=== PATIENT | female | born 1970 | race Two or more races ===

== ENCOUNTER 2025-08-13 01:29 | Inpatient (IN) | payer MEDICAID ==
[2025-08-13] VITALS (8 sets, daily range): BP systolic 91–126; BP diastolic 49–73; PULSE 50–65; RESP 14–19; TEMP 97.5–98.8; O2SAT 97–100
[~2025-08-13] VITALS: Ht 152.4 cm; Wt 80.2 kg
[2025-08-13 02:46] LABS: Hematocrit 39.4 % (36.0-46.0); Hemoglobin 13.3 g/dL (12.2-16.2); Mean Corpuscular Hemoglobin 32.0 pg (28.0-32.0); Mean Corpuscular Volume 94.5 fL (80.0-100.0); Nucleated Red Blood Cells % 0.0 %
[2025-08-13] MEDS: ONDANSETRON HCL 4 MG/2 ML VIAL IV ONE (02:47)
[2025-08-13 02:52] LABS: INR 1.05 (0.9-1.15); Partial Thromboplastin Time 26.8 SEC (24.5-34.5); Prothrombin Time 11.1 sec (9.3-11.8)
[2025-08-13 02:57] LABS: Albumin 4.4 g/dL (3.2-4.8); Alkaline Phosphatase 50 U/L (46-116); Anion Gap 10 (5-15); BUN/Creatinine Ratio 13.3 (10.0-20.0); Blood Urea Nitrogen 10 mg/dL (9-23); Calcium 9.5 mg/dL (8.7-10.4); Carbon Dioxide 21 mmol/L (20-31); Glucose 91 mg/dL (74-106); Magnesium 2.2 mg/dL (1.6-2.6); Potassium 3.7 mmol/L (3.5-5.1); Sodium 139 mmol/L (136-145); Total Protein 7.4 g/dL (5.7-8.2)
[2025-08-13 02:58] LABS: Bilirubin, Total 0.6 mg/dL (0.2-1.0)
[2025-08-13 02:59] LABS: Alanine Aminotransferase 46 U/L (7-40); Chloride 108 mmol/L (98-107)
--- NOTE | 2025-08-13 03:01 | DVH ---
CHEST RADIOGRAPH Indication: SUSPECTED CVA Technique: 1 view Comparison: None FINDINGS: Lines and Tubes: External leads. Lungs/Pleura: No focal consolidation, pleural effusion or pneumothorax. Cardiomediastinum: Unremarkable. Other: No acute osseous abnormality. IMPRESSION: 1. No acute cardiopulmonary abnormality.
--- NOTE | 2025-08-13 03:28 | DVH ---
INDICATION: SUSPECTED CVA COMPARISON: None TECHNIQUE: CTA head without and with intravenous contrast. CTA neck with intravenous contrast. 3D image postprocessing was performed on a dedicated workstation and images were used for interpretation and reporting. Radiation Dose Information: CT Dose: CTDI volume is 57.52 mGy. Dose-length product is 1537.33 mGy*cm FINDINGS: CT head: There is no evidence of acute intracranial hemorrhage, extra-axial collection, mass effect, midline s hift, herniation or hydrocephalus. The ventricles, sulci and cisterns are age appropriate. The duncan -white differentiation is intact. The visualized paranasal sinuses and mastoid air cells are clear. The surrounding soft tissues and osseous structures are unremarkable. CTA head: No large vessel occlusion or hemodynamically significant stenosis. No evidence of aneurysm or vascula r malformation. The dural veins appear patent. CTA neck: The visualized thoracic aortic arch and proximal great vessels are unremarkable. The left common, internal and external carotid arteries are patent with non flow limiting atheroscler osis of the bulb. The right common, internal and external carotid arteries are patent with non flow-limiting atheroscle rosis of the bulb. The cervical segments of the right and left vertebral arteries are within normal limits. The limited visualized lung apices are clear. The surrounding soft tissues and osseous structures ar e otherwise unremarkable. IMPRESSION: 1. No acute intracranial abnormality. 2. No large vessel intracranial occlusion. 3. No hemodynamically significant cervical arterial stenosis. All CT scans at this medical facility are performed using dose modulation techniques as appropriate t o a performed exam including the following: Automated exposure control was utilized; adjustment of th e MA and/or KV according to patient size; and use of iterative reconstruction technique.
[2025-08-13] MEDS: ONDANSETRON HCL 4 MG/2 ML VIAL ONE (03:39)
[2025-08-13] MEDS: IOHEXOL 350 MG/ML 100ML IJ ONE (03:39)
[2025-08-13] MEDS ORDERED: HYDROmorphone HCL 2 MG/ML VL/or syr IV PRN (04:30)
[2025-08-13] MEDS ORDERED: ONDANSETRON HCL 4 MG/2 ML VIAL IV PRN (04:30)
[2025-08-13 05:28] LABS: Hematocrit 39.3 % (36.0-46.0); Hemoglobin 13.4 g/dL (12.2-16.2); Mean Corpuscular Hemoglobin 32.3 pg (28.0-32.0); Mean Corpuscular Volume 94.8 fL (80.0-100.0); Nucleated Red Blood Cells % 0.1 %
[2025-08-13] MEDS: ATORVASTATIN 20 MG TAB PO ONE (05:35)
[2025-08-13] MEDS: PANTOPRAZOLE 40 MG/10 ML VIAL INJ IV ONE (05:35)
[2025-08-13] MEDS: CLOPIDOGREL BISULFATE 75 MG TAB PO ONE (05:35)
[2025-08-13 05:40] LABS: Albumin 4.4 g/dL (3.2-4.8); Alkaline Phosphatase 55 U/L (46-116); Anion Gap 9 (5-15); BUN/Creatinine Ratio 17.6 (10.0-20.0); Blood Urea Nitrogen 12 mg/dL (9-23); Calcium 9.3 mg/dL (8.7-10.4); Carbon Dioxide 26 mmol/L (20-31); Chloride 107 mmol/L (98-107); Glucose 81 mg/dL (74-106); Magnesium 2.1 mg/dL (1.6-2.6); Potassium 3.8 mmol/L (3.5-5.1); Sodium 142 mmol/L (136-145); Total Protein 7.3 g/dL (5.7-8.2)
[2025-08-13 05:41] LABS: Bilirubin, Total 0.7 mg/dL (0.2-1.0)
[2025-08-13 05:54] LABS: Alanine Aminotransferase 74 U/L (7-40)
[2025-08-13 06:04] LABS: Triglycerides 85 mg/dL (< 150)
[2025-08-13 06:06] LABS: Cholesterol 185 mg/dL (< 200)
[2025-08-13 06:13] LABS: INR 1.08 (0.9-1.15); Partial Thromboplastin Time 27.0 SEC (24.5-34.5); Prothrombin Time 11.4 sec (9.3-11.8)
[2025-08-13 06:26] LABS: HDL Cholesterol 65 mg/dL (40-59)
[2025-08-13 06:37] LABS: Urine Protein, UAD TRACE (Negative)
[2025-08-13 06:43] LABS: Opiate Scree,Urine Pos (NEGATIVE)
[2025-08-13 06:46] LABS: Amphetamine Screen, Urine Neg (NEGATIVE); Barbiturate Scree,Urine Neg (NEGATIVE); Benzodiazephine Screen, Urine Neg (NEGATIVE); Phencyclidine Screen, Urine Neg (NEGATIVE)
[2025-08-13 06:47] LABS: Cannabinoid Screen, Urine Neg (NEGATIVE); Cocaine Screen, Urine Neg (NEGATIVE)
--- NOTE | 2025-08-13 07:33 | DVH ---
INDICATION: transaminitis TECHNIQUE: Multiple real-time sonographic images of the abdomen were obtained. COMPARISON: None FINDINGS: The liver is heterogeneous in echogenicity. The liver measures 15cm. No intrahepatic bilia ry ductal dilatation is noted. Gallbladder wall not visualized. The common duct measures 1 cm and is unremarkable. No pericholecyst ic fluid is noted. The right kidney measures 10cm. Mild right hydronephrosis. Gallbladder is possibly contracted, unable to be visualized. The pancreas is not well visualized due to obscuration from bowel gas. The visualized portions of the IVC and aorta are grossly unremarkable. IMPRESSION: Mild right hydronephrosis. Gallbladder is possibly contracted, unable to be visualized. Dilated common bile duct.
--- NOTE | 2025-08-13 08:26 | ECG ---
[facility] Test Date: 2025-08-13 Test Time: 01:38:28 Pat Name: TIARA SILVA Department: [facility] ED Room: 0290T Gender: F Tie Layer: [place] : 1970 Requested By: EMERGENCY EMERGENCY Order Number: [id number] Reading MD: Alexandre Farrar Measurements Intervals [place] Rate: 60 P: 65 MN: 168 QRS: -3 QRSD: 95 T: 62 QT: 439 QTc: 439 Interpretive Statements Sinus rhythm Electronically Signed On 08-17-2025 13:28:41 PST by Alexandre Farrar Please click the below link to view image of tracing.
--- NOTE | 2025-08-13 08:36 | DVH ---
Carotid Duplex Date: 08/13/2025 07:25 AM Clinical History: dizziness Comparison: CT ANGIO HEAD/NECK on DOS: 08/13/25 Technique: Duplex Doppler evaluation of the extracranial carotid and vertebral arteries including col or Doppler and spectral/pulsed waveform analysis was performed. Findings: RIGHT SIDE: Moderate atherosclerotic plaque seen in the right carotid bulb. The peak systolic velocities are 81.5 cm/s in the distal CCA and 114.8 cm/s in the proximal ICA.The I CA/CCA ratio is 1.4. The external carotid artery is patent with peak systolic velocity of 67.2 cm/s proximally. There is appropriate antegrade flow in the right vertebral artery. LEFT SIDE: Mild atherosclerotic plaque seen in the carotid bulb. The peak systolic velocities are 73.4 cm/s in the distal CCA and 158.1 cm/s in the proximal ICA. The ICA/CCA ratio is 2.2. The external carotid artery is patent with peak systolic velocity of 83.5 cm/s proximally. There is appropriate antegrade flow in the left vertebral artery. IMPRESSION: 1. Less than 50% stenosis in the right internal carotid artery. 2. Approximately 50-69% stenosis of the left internal carotid artery based on peak systolic velocity criteria. REFERENCE VALUES, [facility] ([facility]) vascular Imaging Lab Criteria:. 2. Peak systolic velocity ranges (in cm/sec) are as follows:. 3. <150 cm/s - <50% stenosis. 4. 150-200 cm/s - 50-69% stenosis. 5. 200-300 cm/s - 70-94% stenosis. 6. >300 cm/s -> 95% stenosis.
--- NOTE | 2025-08-13 08:49 | DVH ---
EXAMINATION: MRI BRAIN HEAD WO CONTRAST INDICATION: stroke COMPARISON: CT ANGIO HEAD/NECK on DOS: 08/13/25 TECHNIQUE: Multiplanar, multisequence magnetic resonance imaging of the brain was performed without the use of i ntravenous contrast. FINDINGS: No evidence of acute infarct. No intracranial hemorrhage. No mass effect. There is periventricular/deep white matter T2/FLAIR hyperintensity is nonspecific, but most commonly associated with chronic microvascular disease. The ventricles and sulci are normal in size for age. Clear basal cisterns. Flow voids in the major intracranial vessels are maintained. No abnormality of the orbits. The mastoid air cells are clear. There is mild mucosal thickening in the left maxillary sinus. No abnormality of the visualized osseous structures and extracranial soft tissues. IMPRESSION: 1. No acute infarct, intracranial hemorrhage, mass effect, or hydrocephalus.
--- NOTE | 2025-08-13 11:35 | ED.PDOC ---
History of Present Illness HPI Comments 55-year-old female who came to ER via EMS for chest pains. Patient does have a history of hypertension and dyslipidemia. States 30 minutes prior to arrival, she developed sudden onset left-sided chest pains, pressure, radiating to the back. Noted also to have left facial numbness, nape pain, dizziness, generalized weakness and left lower extremity numbness REVIEW OF SYSTEMS: General: No fever, no chills, or fatigue HEENT: No sore throat, no earache, no congestion, no neck pain. Cardiac: (+) chest pain. No palpitations. Lungs: No shortness of breath, no cough. GI: No nausea, no vomiting, no diarrhea, no constipation, no abdominal pain : No dysuria, frequency, or urgency. No hematuria. Musculoskeletal: No joint pain , no joint swelling, no extremity edema. Skin: No rash, no itching. Neuro: (+) headache, (+) dizziness, (+) weakness, (+) left facial numbness EXAM: General: Awake, alert and oriented. No acute distress. Skin: Skin in warm, dry and intact. Appropriate color for ethnicity. HEENT: The head is normocephalic and atraumatic. Conjunctivae are clear without exudates or hemorrhage. Sclera is non-icteric. EOM are intact. No signs of nystagmus. Eyelids are normal in appearance without swelling or lesions. Oral mucosa is pink and moist Neck: The neck is supple with normal range of motion. No JVD. Cardiac: Heart rate and rhythm are normal. No murmurs, gallops, or rubs are auscultated. Respiratory: No signs of respiratory distress. Lung sounds are clear in all lobes bilaterally without rales, rhonchi, or wheezes. Abdominal: Abdomen is soft, non-tender without distention. Bowel sounds are present and normoactive in all four quadrants. Extremities: Upper and lower extremities are atraumatic in appearance without deformity or edema. Neurological: The patient is awake, alert and oriented to person, place, and time with normal speech. Speech is clear. There is no facial asymmetry. Psychiatric: Appropriate mood and affect. Good judgement and insight Chief Complaint: Chest Pain Time Seen by MD: 02:38 Reviewed Notes: Nurses Notes Allergies: Coded Allergies: NO KNOWN ALLERGIES (Unverified , 08/13/25) Home Meds Active Scripts Clopidogrel Bisulfate (Plavix) 75 Mg Tab, 1 TAB PO DAILY for 21 Days, #21 TAB Prov:ALLEGRA MCARTHUR 08/15/25 Aspirin (Aspirin Low Dose) 81 Mg Chw, 1 TAB PO DAILY for 21 Days, #21 [facility] Pantoprazole Sodium Sesquihydr (Protonix) 40 Mg Tab, 40 MG PO DAILY for 14 Days, #14 TAB [facility] 08/[facility]/25 Polyethylene Glycol 3350 (Miralax) 17 Gm Pow, 17 GM PO DAILY for 15 Days, #15 POW [facility] 08/15/25 Clopidogrel Bisulfate (Plavix) 75 Mg Tab, 1 TAB PO DAILY for 21 Days, #21 TAB [facility] 08/15/25 Aspirin (Aspirin Low Dose) 81 Mg Chw, 1 TAB PO DAILY for 21 Days, #21 TAB [facility] 08/15/25 Atorvastatin Calcium (ATORVASTATIN CALCIUM) 80 Mg Tab, 1 TAB PO HS for 30 Days, #30 TAB 3 [facility] 08/15/25 Reported Medications Cyanocobalamin (VITAMIN B 12) 100 Mcg Bertha, 100 MCG PO, BERTHA 08/13/25 Information Source: Patient Mode of Arrival: EMS Past Medical History PAST MEDICAL HISTORY: High Lipids, HTN Surgical History: Denies all surgeries 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 Was a procedure done?: No Differential Dx Considerations may include: Anemia, electrolyte imbalance, CVA, TIA, chest pain, coronary artery disease X-Ray, Labs, Meds, VS Vital Signs Date Time Temp Pulse Resp B/P (MAP) Pulse Ox O2 Delivery O2 Flow Rate FiO2 08/13/25 04:00 50 08/13/25 03:26 52 08/13/25 03:00 59 16 155/66 (95) 98 08/13/25 02:22 58 16 161/68 (99) 100 08/13/25 02:15 Room Air* 0 21 08/13/25 02:10 98.1 54 31 128/68 (88) 99 98.1 08/13/25 01:38 60 08/13/25 01:29 98.4 68 20 147/89 99 98.4 Lab Test 08/13/25 02:47 08/13/25 02:29 08/13/25 01:45 Range/Units Troponin I High Sensitivity 4 4 </=34 ng/L Thyroid Stimulating Hormone (TSH) 2.20 0.55-4.78 uIU/mL POC Glucose 107 H 70-106 mg/dl White Blood Count 5.6 4.4-10.8 10^3/uL Red Blood Count 4.17 4.0-5.20 10^6/uL Hemoglobin 13.3 12.2-16.2 g/dL Hematocrit 39.4 36.0-46.0 % Mean Corpuscular Volume 94.5 80.0-100.0 fL Mean Corpuscular Hemoglobin 32.0 28.0-32.0 pg Mean Corpuscular Hemoglobin Concent 33.9 32.0-36.0 g/dL Red Cell Distribution Width 14.3 11.8-14.3 % Platelet Count 213 140-450 10^3/uL Mean Platelet Volume 7.6 6.9-10.8 fL Neutrophils (%) (Auto) 47.1 37.0-80.0 % Lymphocytes (%) (Auto) 43.9 10.0-50.0 % Monocytes (%) (Auto) 7.2 0.0-12.0 % Eosinophils (%) (Auto) 1.4 0.0-7.0 % Basophils (%) (Auto) 0.4 0.0-2.0 % Neutrophils # (Auto) 2.7 1.6-8.6 10 ^3/uL Lymphocytes # (Auto) 2.5 0.4-5.4 10 ^3/uL Monocytes # (Auto) 0.4 0-1.3 10 ^3/uL Eosinophils # (Auto) 0.1 0-0.8 10 ^3/uL Basophils # (Auto) 0 0-0.2 10 ^3/uL Nucleated Red Blood Cells 0.0 % Prothrombin Time 11.1 9.3-11.8 sec Prothrombin Time INR 1.05 0.9-1.15 Activated Partial Thromboplast Time 26.8 24.5-34.5 SEC Sodium Level 139 136-145 mmol/L Potassium Level 3.7 3.5-5.1 mmol/L Chloride Level 108 H 98-107 mmol/L Carbon Dioxide Level 21 20-31 mmol/L Anion Gap 10 5-15 Blood Urea Nitrogen 10 9-23 mg/dL Creatinine 0.75 0.550-1.02 mg/dL Glomerular Filtration Rate Calc 93 >90 mL/min BUN/Creatinine Ratio 13.3 10.0-20.0 Serum Glucose 91 74-106 mg/dL Calcium Level 9.5 8.7-10.4 mg/dL Magnesium Level 2.2 1.6-2.6 mg/dL Total Bilirubin 0.6 0.2-1.0 mg/dL Aspartate Amino Transferase (AST) 91 H 13-40 U/L Alanine Aminotransferase (ALT) 46 H 7-40 U/L Alkaline Phosphatase 50 46-116 U/L B-Type Natriuretic Peptide 11.99 0-100 pg/mL Total Protein 7.4 5.7-8.2 g/dL Albumin 4.4 3.2-4.8 g/dL Time of 1ST Reevaluation: 02:30 Reevaluation 1ST: Unchanged Patient Education/Counseling: Need For Follow Up Family Education/Counseling: No Family Present SEPSIS Sepsis Screen Date sepsis recognized/suspect: Aug 13, 2025 Time Sepsis recognized/suspect: 0129 Recent Procedure: No On Antibiotic Therapy: No Respiratory Rate >20: No Heart Rate >90: No Temp<36 C (96.8 F) or >38.3 C: No SBP <90 or MAP <65 mmHG: No New Acute Mental Status Change: No Is the patient on CPAP, BIPAP,: No Physician Orders Electrocardigram (08/13/25 01:46) [place] [facility] Consult (08/13/25 02:18) Accurate Weight In Kg (08/13/25 02:19) Accucheck (08/13/25 02:19) Angio Head/Neck (08/13/25 02:19) Chest Xray 1 View (08/13/25 02:19) * Neurology Consult (08/13/25 02:19) Nursing Dysphagia Screen (08/13/25 02:19) Neuro Checks Per Unit Protocol (08/13/25 02:19) Vital Signs Date Time Temp Pulse Resp B/P (MAP) Pulse Ox O2 Delivery O2 Flow Rate FiO2 08/13/25 04:00 50 08/13/25 03:26 52 08/13/25 03:00 59 16 155/66 (95) 98 08/13/25 02:22 58 16 161/68 (99) 100 08/13/25 02:15 Room Air* 0 21 08/13/25 02:10 98.1 54 31 128/68 (88) 99 98.1 08/13/25 01:38 60 08/13/25 01:29 98.4 68 20 147/89 99 98.4 Laboratory Tests Test 08/13/25 01:45 White Blood Count 5.6 10^3/uL (4.4-10.8) Departure 1 Departure Time of Disposition: 03:27 Impression: Primary Impression: Suspected cerebrovascular accident (CVA) Disposition: ADMITTED INPATIENT Condition: Stable e-Prescriptions Clopidogrel Bisulfate (Plavix) 75 Mg Tab 1 TAB PO DAILY for 21 Days, #21 TAB Prov: ALLEGRA MCARTHUR [facility] 08/15/25 Aspirin (Aspirin Low Dose) 81 Mg Chw 1 TAB PO DAILY for 21 Days, #21 TAB [facility]25 Pantoprazole Sodium Sesquihydr (Protonix) 40 Mg Tab 40 MG PO DAILY for 14 Days, #14 TAB [facility] Polyethylene Glycol 3350 (Miralax) 17 Gm Pow 17 GM PO DAILY for 15 Days, #15 POW Prov: ALLEGRA MCARTHUR [facility] 08/15/25 Clopidogrel Bisulfate (Plavix) 75 Mg Tab 1 TAB PO DAILY for 21 Days, #21 TAB Prov: ALLEGRA MCARTHUR [facility] 08/15/25 Aspirin (Aspirin Low Dose) 81 Mg Chw 1 TAB PO DAILY for 21 Days, #21 TAB Prov: ALLEGRA MCARTHUR [facility] 08/15/25 Atorvastatin Calcium (ATORVASTATIN CALCIUM) 80 Mg Tab 1 TAB PO HS for 30 Days, #30 TAB 3 Refills Prov: ALLEGRA MCARTHUR [facility] 08/15/25 Comments Suspected CVA Not a candidate for TNK Critical Care Note Critical Care Time?: No Stability Stability form required: No Heart Score Heart Score: Heart Score Response (Comments) Value History N/A 0 EKG N/A 0 Age N/A 0 Risk Factors N/A 0 Troponin N/A 0 Total 0 I personally scribed for PETER BAIN MD ([email or web address]) on 08/13/25 at 02:38. Electronically submitted by Newton Man ([email or web address]). PETER BAIN MD Aug 13, 2025 02:38
--- NOTE | 2025-08-13 11:37 | BSKYNEURO ---
[place] [facility] Note # Demographics Consult Type: Acute Stroke Level 1 (0-4.5 hrs) Patient Location: Emergency Room First Name: Anisa Last Name: French Date of : 1970 Age: 55 Gender: Female Facility: [facility] Time of Initial Page (): 08/13/2025 02:22 First Contact with Site (): 08/13/2025 02:23 # HPI History: 55y F who presented with headache L facial numbness and generalized weakness. On ER eval her symptoms are almost resolved. Patient notes she was sitting in bed when she suddenly had chest pain with numbness going to the L side of her face. Last Known Normal: 0000 # Scores Time of exam and NIHSS (): 08/13/2025 02:54 Level of Consciousness 1a: [0] = Alert; keenly responsive LOC Questions 1b: [0] = Answers both questions correctly LOC Commands 1c: [0] = Performs both tasks correctly Best Gaze 2: [0] = Normal Visual 3: [0] = No visual loss Facial Palsy 4: [0] = Normal symmetrical movements Motor Arm Left 5a: [0] = No drift Motor Arm Right 5b: [0] = No drift Motor Leg Left 6a: [0] = No drift Motor Leg Right 6b: [0] = No drift Limb Ataxia 7: [0] = Absent Sensory 8: [1] = Pelg-of-pdcrirwr sensory loss Best Language 9: [0] = No aphasia Dysarthria 10: [0] = Normal Extinction and Inattention 11: [0] = No abnormality NIHSS Total: 1 # Data Time Head CT personally read by me (): 08/13/2025 02:[address]: - no bleed - preliminarily reviewed by me, please refer to radiology read for official reading Time CTA personally reviewed by me (): 08/13/2025 02:50 CTA Head: - no large vessel occlusion - preliminarily reviewed by me, please refer to radiology read for official reading CTA Neck: - patent vessels - preliminarily reviewed by me, please refer to radiology read for official reading # Assessment Impression: - Ischemic Stroke (Acute) Differential Diagnosis: - Stroke Mimic # Plan Thrombolytic/Intervention: NOT IV Thrombolysis or IA Intervention candidate Thrombolytic Exclusion (< 3 hour window): - Individualized disability discussion had with the patient and/or family, and they have determined the current deficits to be non-disabling and do not wish to proceed with thrombolytic Intraarterial Exclusion: - no large vessel occlusion (LVO) Modified Mchenry Scale (mRS) pre-stroke: [1] = No significant disability despite symptoms; able to carry out all usual duties and activities. Blood Pressure Management: - nicardipine - labetalol Target Blood Pressure: - SBP < 220 - DBP < 120 - Permissive HTN for 24 hrs followed by slowly lowering to normotension with retirement goal of SBP <130 Labs: - hemoglobin A1c - lipid panel - TSH Imaging: (urgency: routine): - MRI Brain without contrast Diagnostic Test: - echo with bubble study Therapy/Evaluation: - PT/OT evaluation - NPO until swallow evaluation Medication: - start statin with goal of LDL < 70 - aspirin 81 mg PO PLUS clopidogrel (Plavix) 75 mg PO daily for 21 days, then monotherapy thereafter DVT Prophylaxis: - SCD - chemical DVT prophylaxis Other: - If patient has any neurological deterioration please call me back immediately - telemetry monitoring - will need event monitor or loop recorder as outpatient if atrial fibrillation not found as inpatient - I have discussed my recommendations with the referring provider Disposition: admit # Logistics Attestation of consult completion: The patient is located at: [facility]. Facility staff participated in the visit. I performed this telemedicine visit from my offsite office utilizing interactive 2 way audio and visual telecommunication technology at the request of the onsite emergency room provider. Consent: Verbal consent was obtained from the patient and/or family for this encounter. Total time spent in telemedicine encounter: I spent 22 minutes reviewing clinical data and/or imaging, obtaining history, examining the patient, communicating with the onsite care team, and in preparation of this report. # Demographics First Name: Anisa Last Name: French Facility: [facility] Electronically signed at 08/13/2025 03:05 (Branch Time) by Brittany Newby DO Yes BRITTANY NEWBY DO Aug 13, 2025 03:05
--- NOTE | 2025-08-13 11:39 | DVHHPRES ---
History of Present Illness Resident Creating Document: RHODA KOEHLER RESIDENT History of Present Illness 55-year-old female with a past medical history of hypertension, hyperlipidemia, prediabetic, GERD came with the chief complaints of chest pain and numbness in her left half of the face since today afternoon. Patient is [place]ian speaking so history taking was aided by daughter and son. Patient reports that she had an acute sharp stabbing substernal chest pain which radiated to the back, 10/10 in intensity, with no aggravating or relieving factors, associated with nausea and slight shortness of breaths. 5 to 6 minutes later she felt her left side of the face go numb and this numbness increase towards the back of her neck and felt generalized weakness as well. As per patient's daughter, patient has been under a lot of emotional stress lately. Patient denies any fever, chills, recent sick contacts, vomiting, palpitations, new medications. on admission vitals were stable, CT head shows no acute intracranial abnormality. We are admitting the patient for further workup and management. Past medical history: As stated above Past surgical history: None Family history: Mother has diabetes mellitus, father has hypertension Social history: Patient quit smoking 3 years ago but used to smoke 3 cigarettes per day for 40 years, denies any alcohol or drug abuse Allergies: Shellfish, shrimp, oak tree, trees, grass; no medical allergy known PCP: Dr.Andreas Hernandez Code status: Full code Review of Systems Constitutional: No: Fever, Chills, Sweats, Weakness, Malaise, Other Eyes: No: Pain, Vision change, Conjunctivae inflammation, Eyelid inflammation, Other, Redness ENT: No: Ear pain, Ear discharge, Nose pain, Nose discharge, Nose congestion, Mouth pain, Mouth swelling, Throat pain, Throat swelling, Other Respiratory: No: Cough, Dry, Shortness of breath, SOB with excertion, Wheezing, Hemoptysis, Pleuritic Pain, Sputum, Wheezing, Other Cardiovascular: Chest Pain Gastrointestinal: Nausea; No: Vomiting, Abdominal Pain, Diarrhea, Constipation, Melena, Hematochezia, Other Genitourinary: No Dysuria, No Frequency, No Incontinence, No Hematuria, No Retention, No Other Musculoskeletal: No: other, neck pain, shoulder pain, arm pain, back pain, hand pain, leg pain, foot pain Skin: No: Rash, Lesions, Jaundice, Bruising, Other Neurological: Weakness, Numbness; No: Incoordination, Change in speech, Confusion, Seizures, Other Allergies: Coded Allergies: NO KNOWN ALLERGIES (Unverified , 08/13/25) Exam Vital Signs Vital Signs Date Time Temp Pulse Resp B/P (MAP) Pulse Ox O2 Delivery O2 Flow Rate FiO2 08/13/25 01:38 60 08/13/25 01:29 98.4 20 147/89 99 98.4 Exam General Appearance: Alert, Oriented X3, Cooperative, Not in acute distress HEENT: Atraumatic, Mucous membranes moist/pink Respiratory: Clear to auscultation, Normal air movement, No added sounds Cardiovascular: Regular rate, Normal S1, Normal S2, No murmurs, tenderness on palpation of central chest region Abdominal: Active bowel sounds, Soft, no distention, no tenderness Extremities: No edema, Normal pulses, No tenderness/swelling Skin: No Significant rash, except past surgical scars Neuro: Normal speech, 4/5 power in the left lower extremity, all other extremities have equal strength and power, no sensorimotor deficits noted Psych/Mental Status: Mental status NL, Mood NL Nurse was there as retail receiving clerk during examination Labs/Xrays Labs Test 08/13/25 02:47 08/13/25 02:29 08/13/25 01:45 Range/Units Troponin I High Sensitivity 4 </=34 ng/L POC Glucose 107 H 70-106 mg/dl White Blood Count 5.6 4.4-10.8 10^3/uL Red Blood Count 4.17 4.0-5.20 10^6/uL Hemoglobin 13.3 12.2-16.2 g/dL Hematocrit 39.4 36.0-46.0 % Mean Corpuscular Volume 94.5 80.0-100.0 fL Mean Corpuscular Hemoglobin 32.0 28.0-32.0 pg Mean Corpuscular Hemoglobin Concent 33.9 32.0-36.0 g/dL Red Cell Distribution Width 14.3 11.8-14.3 % Platelet Count 213 140-450 10^3/uL Mean Platelet Volume 7.6 6.9-10.8 fL Neutrophils (%) (Auto) 47.1 37.0-80.0 % Lymphocytes (%) (Auto) 43.9 10.0-50.0 % Monocytes (%) (Auto) 7.2 0.0-12.0 % Eosinophils (%) (Auto) 1.4 0.0-7.0 % Basophils (%) (Auto) 0.4 0.0-2.0 % Neutrophils # (Auto) 2.7 1.6-8.6 10 ^3/uL Lymphocytes # (Auto) 2.5 0.4-5.4 10 ^3/uL Monocytes # (Auto) 0.4 0-1.3 10 ^3/uL Eosinophils # (Auto) 0.1 0-0.8 10 ^3/uL Basophils # (Auto) 0 0-0.2 10 ^3/uL Nucleated Red Blood Cells 0.0 % Prothrombin Time 11.1 9.3-11.8 sec Prothrombin Time INR 1.05 0.9-1.15 Activated Partial Thromboplast Time 26.8 24.5-34.5 SEC Sodium Level 139 136-145 mmol/L Potassium Level 3.7 3.5-5.1 mmol/L Chloride Level 108 H 98-107 mmol/L Carbon Dioxide Level 21 20-31 mmol/L Anion Gap 10 5-15 Blood Urea Nitrogen 10 9-23 mg/dL Creatinine 0.75 0.550-1.02 mg/dL Glomerular Filtration Rate Calc 93 >90 mL/min BUN/Creatinine Ratio 13.3 10.0-20.0 Serum Glucose 91 74-106 mg/dL Calcium Level 9.5 8.7-10.4 mg/dL Magnesium Level 2.2 1.6-2.6 mg/dL Total Bilirubin 0.6 0.2-1.0 mg/dL Aspartate Amino Transferase (AST) 91 H 13-40 U/L Alanine Aminotransferase (ALT) 46 H 7-40 U/L Alkaline Phosphatase 50 46-116 U/L B-Type Natriuretic Peptide 11.99 0-100 pg/mL Total Protein 7.4 5.7-8.2 g/dL Albumin 4.4 3.2-4.8 g/dL SEPSIS Sepsis Screen Date sepsis recognized/suspect: Aug 13, 2025 Time Sepsis recognized/suspect: 050 Recent Procedure: No On Antibiotic Therapy: No Respiratory Rate >20: No Heart Rate >90: No Temp<36 C (96.8 F) or >38.3 C: No SBP <90 or MAP <65 mmHG: No New Acute Mental Status Change: No Is the patient on CPAP, BIPAP,: No Physician Orders Electrocardigram (08/13/25 01:46) [place] Neuro Consult (08/13/25 02:18) Stroke Assessment (08/13/25 02:19) Vital Signs .PER UNIT PROTOCOL (08/13/25 02:19) Direct Support Staff (08/13/25 02:19) Accurate Weight In Kg (08/13/25 02:19) Accucheck (08/13/25 02:19) Angio Head/Neck (08/13/25 02:19) Chest Xray 1 View (08/13/25 02:19) * Neurology Consult (08/13/25 02:19) 2 Large Bore Ivs (20mg Or Larg (08/13/25 02:19) Nursing Dysphagia Screen (08/13/25 02:19) Neuro Checks Per Unit Protocol (08/13/25 02:19) Troponin-I Hs (08/13/25 05:19) Admit (08/13/25 04:20) Code Status (08/13/25 04:20) Ondansetron Hcl (Zofran) (08/13/25 04:30) Complete Blood Count (08/13/25 04:20) Comprehensive Metabolic Panel (08/13/25 04:20) Npo (Nothing By Mouth) Diet (08/13/25 Breakfast) Pt Request For Service (08/13/25 04:20) Condition: Unstable (08/13/25 04:20) Sequential Compression Device (08/13/25 ) Stat Ekg For Chest Pain (08/13/25 04:20) Notify Md Of Changes From Base (08/13/25 04:20) Metal Stamper For 24 Hours (08/13/25 04:20) Thyroid Stimulating Hormone (08/13/25 04:20) Brain Head Wo Contrast (08/13/25 04:20) Atorvastatin (Lipitor) (08/13/25 22:00) Clopidogrel Bisulfate (Plavix) (08/14/25 10:00) Echo 2d Mode Cardiac Dop (08/13/25 04:20) Carotid Duplx W Color Dop (08/13/25 04:20) LIVER (08/13/25 04:20) Hydromorphone Injection (Dilaudid Inject (08/13/25 04:30) Urinalysis (08/13/25 04:20) Drug Screen (08/13/25 04:20) * Swallow Request (08/13/25 04:20) Aspirin Tablet (08/14/25 10:00) Pantoprazole (Protonix) (08/14/25 10:00) Magnesium (08/13/25 04:20) Vital Signs Date Time Temp Pulse Resp B/P (MAP) Pulse Ox O2 Delivery O2 Flow Rate FiO2 08/13/25 01:38 60 08/13/25 01:29 98.4 68 20 147/89 99 98.4 Laboratory Tests Test 08/13/25 01:45 White Blood Count 5.6 10^3/uL (4.4-10.8) Medications Medications Dose Ordered Sig/Sayra Route Start Time Stop Time Status Last Admin Dose Admin Ondansetron HCl 4 mg ONCE ONCE IV 08/13/25 02:45 08/13/25 02:46 DC 08/13/25 02:47 4 MG Assessment/Plan Assessment/Plan #Ischemic Stroke (Acute) - CT head shows: No acute intracranial abnormality; No large vessel intracranial occlusion; No hemodynamically significant cervical arterial stenosis. - Neuro consult placed suggested: -NOT IV Thrombolysis or IA Intervention candidate - Permissive HTN for 24 hrs followed by slowly lowering to normotension with penitentiary goal of SBP <130 - hemoglobin A1c - lipid panel - TSH - MRI Brain without contrast - PT evaluation - NPO until swallow evaluation - Atorvastatin 40mg daily HS; goal of LDL < 70 - aspirin 81 mg PO PLUS clopidogrel (Plavix) 75 mg PO daily for 21 days, then monotherapy thereafter - SCD - telemetry monitoring - carotid doppler - Mg 2.2 - PT/PTT - Zofran 4 mg IV q.4 PRN for nausea #Acute chest pain, most likely musculoskeletal - CXR: No acute cardiopulmonary abnormality - BNP:11.99 - tropes negative - EKG unremarkable - tele monitor - hold BP medications for now as permissive hypertension allowed - echo with bubble study - UA - UDS - Dilaudid .25 g IV q.4 PRN #Transaminitis - AST 91, ALT 46 -liver usg GI prophylaxis: Protonix 40 mg IV daily DVT prophylaxis: SCD Diet: NPO until swallow evaluation as suggested by Neurology Goals of care discussed with the patient for more than 27 minutes: Full code status Case discussed with Dr. Luna, patient and nurse. Plan discussed with: Patient, Daughter, Son My Orders Orders - [facility] GRADY Procedure Category Date Status Time Admit ADMIT 08/13/25 Transmitted 04:20 Code Status CODE 08/13/25 Transmitted 04:20 Ondansetron Hcl PHA 08/13/25 In Process (Zofran) 04:30 Complete Blood Count LAB 08/13/25 Logged 04:20 Comprehensive LAB 08/13/25 Logged Metabolic Panel 04:20 Npo (Nothing By DIET 08/13/25 Transmitted Mouth) Diet Breakfast Pt Request For Service PT 08/13/25 Logged 04:20 Condition: Unstable DEDE 08/13/25 In Process 04:20 Sequential DEDE 08/13/25 In Process Compression Device Stat Ekg For Chest DEDE 08/13/25 In Process Pain 04:20 Notify Md Of Changes DEDE 08/13/25 In Process From Base 04:20 Metal Stamper For DEDE 08/13/25 In Process 24 Hours 04:20 Thyroid Stimulating LAB 08/13/25 In Process Hormone 04:20 Brain Head Wo Contrast MRI 08/13/25 Logged 04:20 Atorvastatin (Lipitor) PHA 08/13/25 In Process 22:00 Clopidogrel Bisulfate PHA 08/14/25 In Process (Plavix) 10:00 Echo 2d Mode Cardiac US 08/13/25 Logged DOP 04:20 Carotid Duplx W Color US 08/13/25 Logged DOP 04:20 LIVER US 08/13/25 Logged 04:20 Hydromorphone PHA 08/13/25 In Process Injection (Dilaudid 04:30 Urinalysis LAB 08/13/25 Logged 04:20 Drug Screen LAB 08/13/25 Logged 04:20 * Swallow Request ST 08/13/25 Transmitted 04:20 Aspirin Tablet PHA 08/14/25 In Process 10:00 Pantoprazole PHA 08/14/25 In Process (Protonix) 10:00 Magnesium LAB 08/13/25 Logged 04:20 Date of Service: Aug 13, 2025 Billing Provider: BETSY LUNA MD Common Visit Codes: [id number] INP/OBS CARE (HIGH) Secondary Visit Codes: [id number] CARE PLAN 30 MINUTES PARAM GRADY Aug 13, 2025 05:10
[2025-08-13] MEDS ORDERED: ATOR10TA PO (11:44)
[2025-08-13] MEDS ORDERED: LISI20TA56 PO (11:44)
[2025-08-13] MEDS ORDERED: CYAN100L PO ×2 (11:44)
[2025-08-13] MEDS ORDERED: MEDR5TAB28 PO (11:44)
[2025-08-13] MEDS ORDERED: [UNRECOGNIZED DRUG - CODE] TD (11:44)
[2025-08-13] MEDS ORDERED: HYDR-4798 PO (11:44)
[2025-08-13] MEDS ORDERED: CHOL200039 PO (11:44)
[2025-08-13] MEDS ORDERED: PANT40TA2 PO (11:44)
[2025-08-13] MEDS ORDERED: [UNRECOGNIZED DRUG - CODE] PO (11:44)
--- NOTE | 2025-08-13 14:56 | DVHPNRES ---
Progress Note Date Seen: Aug 13, 2025 Resident Creating Document: [facility] RESIDENT Medical Necessity Reason Pt with a Central, PICC or Fol: No Subjective Review of Systems Anisa Braswell is a 55-year old female with past medical history of hypertension, hyperlipidemia, prediabetes, GERD who came to the ED with the chief complaint of chest pain and numbness in the left side of her face since yesterday. The patient mentions that she had a sharp, stabbing substernal chest pain, rated as 10/10 in intensity, radiating to the back, associated with nausea and mild shortness of breath yesterday afternoon. About 10 minutes later, she started feeling numbness on the left side of her face along with generalized weakness. The patient's son mentioned that she has been under remains emotional stress in the last few weeks. She denies any fever,chills and palpitations. CT head was done which showed no acute changes. Neurology was consulted. Past medical history: Hypertension, hyperlipidemia, prediabetes, GERD Past surgical history: Cholecystectomy, section, ovarian cystectomy Social & Personal history: Lives at home with family Smoking: Quit smoking 3 years ago, used to smoke 3 cigarettes per day for 40 years Alcohol: Denies Drugs: Denies Allergies: Shellfish, shrimp, oak tree, trees, grass Patient seen and examined at bedside. Patient is alert and oriented to time, place person and responding to all questions. Patient mentions she has generalized body weakness. Eyes: No Pain, No Vision change, No Conjunctivae inflammation, No Eyelid inflammation, No Redness ENT: No Ear pain, No Ear discharge, No Nose pain, No Nose discharge, No Nose congestion, No Mouth pain, No Mouth swelling, No Throat pain, No Throat swelling Cardiovascular: No Chest Pain, No Palpitations, No Orthopnea, No Paroxysmal No Dyspnea, No Edema, No Lt Headedness Respiratory: No Cough, No Dry, No Shortness of breath, No SOB with exertion, No Wheezing, No Hemoptysis, No Pleuritic Pain, No Sputum Gastrointestinal: No Nausea, No Vomiting, No Abdominal Pain, No Diarrhea, No Constipation, No Melena, No Hematochezia Genitourinary: No Dysuria, No Frequency, No Incontinence, No Hematuria, No Retention Objective vital signs Vital Sign Date Time Temp Pulse Resp B/P (MAP) Pulse Ox O2 Delivery O2 Flow Rate FiO2 08/13/25 12:34 97.5 52 18 116/69 (85) 98 97.5 08/13/25 09:59 Room Air* 0 21 medications Current Medications Medications Dose Ordered Sig/Sayra Route Start Time Stop Time Status Last Admin Dose Admin Ondansetron HCl 4 mg Q4HP PRN IV 08/13/25 04:30 Atorvastatin Calcium 40 mg HS PO 08/13/25 22:00 Aspirin 81 mg DAILY PO 08/14/25 10:00 Clopidogrel Bisulfate 75 mg DAILY PO 08/14/25 10:00 Pantoprazole Sodium 40 mg DAILY IV 08/14/25 10:00 Hydromorphone HCl 0.25 mg Q4HPRN PRN IV 08/13/25 04:30 Examination General Appearance: Alert, Oriented X3, Cooperative, Not in acute distress HEENT: Atraumatic, Mucous membranes moist/pink Respiratory: Clear to auscultation, Normal air movement, No added sounds Cardiovascular: Regular rate, Normal S1, Normal S2, No murmurs, tenderness on palpation of central chest region Abdominal: Active bowel sounds, Soft, no distention, no tenderness Extremities: No edema, Normal pulses, No tenderness/swelling Skin: No Significant rash, except past surgical scars Neuro: Normal speech, cranial nerves intact, tone 5/5 in all extremities, strength 5 /5 in upper extremities and 4/5 in lower extremities, all sensations intact Psych/Mental Status: Mental status NL, Mood NL Nurse was there as import/export specialist during examination laboratory and microbiology Laboratory Tests 08/13/25 05:04 Test 08/13/25 05:04 Range/Units Serum Glucose 81 74-106 mg/dL Labs and/or images reviewed: Labs reviewed by me, Image(s) reviewed by me Problem List/Assessment/Plan Problem List/Assessment/Plan #Acute chest pain, most likely musculoskeletal,ruled out ACS - CXR: No acute cardiopulmonary abnormality - BNP:11.99 - tropes negative - EKG unremarkable - echo with bubble study, pending report - Dilaudid .25 g IV q.4 PRN #TIA Ruled out Ischemic Stroke (Acute) - CT head shows: No acute intracranial abnormality; No large vessel intracranial occlusion; No hemodynamically significant cervical arterial stenosis. - Neuro consult placed suggested: -NOT IV Thrombolysis or IA Intervention candidate - Permissive HTN for 24 hrs followed by slowly lowering to normotension with usp goal of SBP <130 - hemoglobin A1c - lipid panel - TSH - MRI Brain without contrast-No acute infarct, intracranial hemorrhage, mass effect, or hydrocephalus.t - PT evaluation - Atorvastatin 40mg daily HS; goal of LDL < 70 - aspirin 81 mg PO PLUS clopidogrel (Plavix) 75 mg PO daily for 21 days, then monotherapy thereafter - carotid doppler 1. Less than 50% stenosis in the right internal carotid artery 2. Approximately 50-69% stenosis of the left internal carotid artery based on peak systolic velocity criteria. - Zofran 4 mg IV q.4 PRN for nausea #Hyperlipidemia #Transaminitis - AST 91, ALT 46 -liver usg Mild right hydronephrosis, Gallbladder is possibly contracted, unable to be visualized and Dilated common bile duct. GI prophylaxis: Protonix 40 mg IV daily DVT prophylaxis: SCD Diet: cardiac diet Goals of care discussed with the patient for more than 27 minutes: Full code status Case discussed with Dr. Richard Plan discussed with: Patient, Son My Orders My Orders Orders - [facility] Procedure Category Date Status Time Cardiac DIET 08/13/25 Transmitted Diet-2gna,Lofat,Lochol Lunch Date of Service: Aug 13, 2025 Billing Provider: MONE RICHARD MD Common Visit Codes: NOT BILLABLE [facility] Aug 13, 2025 14:56 MONE RICHARD MD Aug 13, 2025 22:16
[2025-08-13] MEDS: diphenhydrAMINE HCL 50 MG/1 ML VL IV ONE (20:47)
[2025-08-13] MEDS: ATORVASTATIN 20 MG TAB PO SCH (22:47)
[2025-08-14] VITALS (8 sets, daily range): BP systolic 106–129; BP diastolic 65–81; PULSE 51–82; RESP 16–18; TEMP 97.2–99; O2SAT 95–97
--- NOTE | 2025-08-14 04:09 | DVHSR ---
APPROVED REPORT EXAM: LIMITED Two-dimensional and M-mode echocardiogram with Doppler and color Doppler. Blood Pressure: 107/69 mmHg INDICATION Chest Pain RISK FACTORS Height: 5' 5", Weight: 158 DIMENSIONS LVDd3.7 (3.8-5.7cm)LA (2D)4.0 (1.9-4.0cm)Aortic Root3.2 (2.0-3.7cm) LVDs2.5 (2.5-4.0cm)LA (MM) (1.9-4.0cm)Aortic Cusp Exc1.7 (1.5-2.0cm) EF (%) 62.0 (55-70%)Rt. Atrium (1.9-4.0cm)Asc. Aorta cm IVSd1.1 (0.7-1.1cm)RV (D) (1.8-2.4cm) PWd1.0 (0.7-1.1cm) Mitral Valve MitralMitral Stenosis E wave0.80m/sMV Mean GR.mmHg A wave0.80m/sMV Peak GR.mmHg E/A ratio1.02D MVAcm2 Aortic Valve Aortic ValveAortic Stenosis V11.30m/Mathew Mean GR.6mmHg V21.80m/Mathew Peak GR.13mmHg LVOT Diameter2.1 (1.8-2.4cm)Doppler AVA2.50cm2 Other Information Quality : Technically LimitedRhythm : Technically limited study due to body habitus. Conclusion MILD LVH AND MILD LV DIASTOLIC DYSFUNCTION LV EF IS 65% NORMAL VALVES NO EFFUSION
[2025-08-14 08:08] LABS: Hematocrit 39.1 % (36.0-46.0); Hemoglobin 13.4 g/dL (12.2-16.2); Mean Corpuscular Hemoglobin 32.7 pg (28.0-32.0); Mean Corpuscular Volume 95.0 fL (80.0-100.0); Nucleated Red Blood Cells % 0.1 %
[2025-08-14 08:25] LABS: Albumin 4.1 g/dL (3.2-4.8); Alkaline Phosphatase 52 U/L (46-116); Anion Gap 10 (5-15); BUN/Creatinine Ratio 16.7 (10.0-20.0); Blood Urea Nitrogen 12 mg/dL (9-23); Calcium 9.0 mg/dL (8.7-10.4); Carbon Dioxide 24 mmol/L (20-31); Glucose 81 mg/dL (74-106); Potassium 4.2 mmol/L (3.5-5.1); Sodium 142 mmol/L (136-145); Total Protein 7.3 g/dL (5.7-8.2)
[2025-08-14 08:26] LABS: Bilirubin, Total 0.9 mg/dL (0.2-1.0)
[2025-08-14 08:39] LABS: Alanine Aminotransferase 50 U/L (7-40); Chloride 108 mmol/L (98-107)
[2025-08-14] MEDS: PANTOPRAZOLE 40 MG/10 ML VIAL INJ IV SCH (09:29)
[2025-08-14] MEDS: ACETAMINOPHEN 325 MG TAB PO ONE (09:31)
[2025-08-14] MEDS: CLOPIDOGREL BISULFATE 75 MG TAB PO SCH (09:31)
[2025-08-14] MEDS: SODIUM CHLORIDE 0.9% 500 ML IV ONE (12:51)
[2025-08-14] MEDS: KETOROLAC TROMETH 30 MG/ML 1ML VIAL IV ONE (12:51)
[2025-08-14] MEDS ORDERED: predniSONE 20 MG TAB PO SCH (14:00)
--- NOTE | 2025-08-14 15:46 | DVHPNRES ---
Progress Note Date Seen: Aug 14, 2025 Resident Creating Document: CHRISTOPH BARNHART RESIDENT Medical Necessity Reason Pt with a Central, PICC or Fol: No Subjective Review of Systems Mrs. Anisa Braswell is a 55-year old female, with past medical history of hypertension, hyperlipidemia, pre-diabetes, and GERD. The patient came to the ED with the chief complaint of 1 day of chest pain 10/10, sub-sternal, stabbing like, irradiated to her back, associated with nausea, mild shortness of breath. The patient also reports that 10 minutes after the initiation of the chest pain she developed numbness in the left side of her face, this prompted her visit to the ED. The patient's son mentioned that she has been under remains emotional stress in the last few weeks. She denies any fever,chills and palpitations, abdominal pain. CT head was done which showed no acute changes. Neurology was consulted. The patient was admitted for further follow-up and assessment. Past medical history: Hypertension, hyperlipidemia, prediabetes, GERD Past surgical history: Cholecystectomy, section, ovarian cystectomy Social & Personal history: Lives at home with family Smoking: Quit smoking 3 years ago, used to smoke 3 cigarettes per day for 40 years Alcohol: Denies Drugs: Denies Allergies: Shellfish, shrimp, oak tree, trees, grass Hospital course: On 08/13/25, the patient seen and examined at bedside. Patient is alert and oriented to time, place person and responding to all questions. Patient mentions she has generalized body weakness. On 08/14/25, the patient was evaluated and examined at the bedside, VS, labs and chart was reviewed. The patient reports chest pain has resolved 0/10. She complains of headache, and still having numbness on left side of her face; neurology is on board. Ct angio Head/Neck showed: No acute intracranial abnormality. No large vessel intracranial occlusion. No hemodynamically significant cervical arterial stenosis.Head MRI was requested; this was negative for CVA. Carotid doppler: Less than 50% stenosis in the right internal carotid artery. Approximately 50- 69% stenosis of the left internal carotid artery based on peak systolic velocity criteria. ECHo showed EF 65%. Due to general weakness a PT evaluation was ordered. The patient will continue on close monitoring. ROS: Constitutional: Yes; General weakness. Denies: chills, diaphoresis, fatigue, fever, malaise, sweats, others EENTM: Yes: Left sided headache and left sided face tingling sensation. D enies: blurred vision, double vision, ear bleeding, ear discharge, ear drainage, ear pain, ear ringing, eye pain, eye redness, hearing loss, mouth pain, mouth swelling, nasal discharge, nose bleeding, nose congestion, nose pain, photophobia, tearing, throat pain, throat swelling, voice changes, others Respiratory: Denies: cough, hemoptysis, orthopnea, SOB at rest, shortness of breath, SOB with excertion, stridor, wheezing, others Cardiovascular: denies: No chest pain, resolved. dizzy spells, diaphoresis, Dyspnea on exertion, edema, irregular heart beat, left arm pain, lightheadedness, palpitations, PND, syncope, others Gastrointestinal: reports: Improvement, no new nausea, vomiting or diarrhea; denies: abdomen distended, abdominal pain, blood streaked bowels, constipated, diarrhea, dysphagia, difficulty swallowing, hematemesis, melena, poor appetite, poor fluid intake, rectal bleeding, rectal pain, others Genitourinary: denies: burning, dysuria, flank pain, frequency, hematuria, incontinence, penile discharge, penile sore, pain, testicle pain, testicle swelling, urgency, others Neurological: reports: No headache; denies: dizziness, fainting, left sided numbness, left sided weakness, numbness, paresthesia, pre-existing deficit, right sided numbness, right sided weakness, seizure, speech problems, tingling, tremors, weakness, others Musculoskeletal: denies: back pain, gout, joint pain, joint swelling, muscle pain, muscle stiffness, neck pain, others Integumetry: denies: bruises, change in color, change in hair/nails, dryness, laceration, lesions, lumps, rash, wounds, others Allergic/Immunocompromised: denies: Difficulty Healing, Frequent Infections, Hives, Itching, others Hematologic/Lymphatic: denies: anemia, blood clots, easy bleeding, easy bruising, swollen glands, others Endocrine: denies: excessive hunger, excessive sweating, excessive thirst, excessive urination, flushing, intolerance to cold, intolerance to heat, unexplained weight gain, unexplained weight loss, others Psychiatric: denies: anxiety, bipolar disorder, depression, hopeless, panic disorder, schizophrenia, sleepless, suicidal, others All Other Systems: Reviewed and Negative Objective vital signs Vital Sign Date Time Temp Pulse Resp B/P (MAP) Pulse Ox O2 Delivery O2 Flow Rate FiO2 08/14/25 13:00 97.5 54 16 129/81 (97) 96 97.5 08/14/25 08:00 Nasal Cannula* 1 24 Total Intake and Output 08/13/25 08/13/25 08/14/25 15:00 23:00 07:00 Intake Total 300 ml 300 ml Balance 300 ml 300 ml medications Current Medications Medications Dose Ordered Sig/Sayra Route Start Time Stop Time Status Last Admin Dose Admin Ondansetron HCl 4 mg Q4HP PRN IV 08/13/25 04:30 Aspirin 81 mg DAILY PO 08/14/25 10:00 08/14/25 09:30 81 MG Clopidogrel Bisulfate 75 mg DAILY PO 08/14/25 10:00 08/14/25 09:31 75 MG Pantoprazole Sodium 40 mg DAILY IV 08/14/25 10:00 08/14/25 09:29 40 MG Hydromorphone HCl 0.25 mg Q4HPRN PRN IV 08/13/25 04:30 Atorvastatin Calcium 80 mg HS PO 08/14/25 22:00 Polyethylene Glycol 17 gm DAILYPRN PRN PO 08/14/25 12:00 Examination General Appearance: Alert, Oriented X3, Cooperative, Not in acute distress HEENT: Atraumatic, Mucous membranes moist/pink Respiratory: Clear to auscultation, Normal air movement, No added sounds Cardiovascular: Regular rate, Normal S1, Normal S2, No murmurs, tenderness on palpation of central chest region Abdominal: Active bowel sounds, Soft, no distention, no tenderness Extremities: No edema, Normal pulses, No tenderness/swelling Skin: No Significant rash. Neuro: Normal speech, Cranial nerves preserved, tone 5/5 in all extremities, strength 5 /5 in upper extremities and 4/5 in lower extremities, all sensations intact. Mild left side face asymmetry. Psych/Mental Status: Mental status NL, Mood NL Nurse was there as box sorter during examination laboratory and microbiology Laboratory Tests 08/14/25 07:53 Test 08/14/25 07:53 Range/Units Serum Glucose 81 74-106 mg/dL Problem List/Assessment/Plan Problem List/Assessment/Plan #Acute chest pain, most likely musculoskeletal ACS, ruled out - CXR: No acute cardiopulmonary abnormality - BNP:11.99 - tropes negative - EKG unremarkable - Echo with bubble study: EF 65% - Dilaudid .25 g IV q.4 PRN #Possible TIA Ruled out Ischemic Stroke (Acute) - CT head shows: No acute intracranial abnormality; No large vessel intracranial occlusion; No hemodynamically significant cervical arterial stenosis. - Neuro consult placed suggested: -NOT IV Thrombolysis or IA Intervention candidate - Permissive HTN for 24 hrs followed by slowly lowering to normotension with halfway goal of SBP <130 - hemoglobin A1c - lipid panel - TSH - MRI Brain without contrast-No acute infarct, intracranial hemorrhage, mass effect, or hydrocephalus.t - PT evaluation - Atorvastatin 40mg daily HS; goal of LDL < 70 - aspirin 81 mg PO PLUS clopidogrel (Plavix) 75 mg PO daily for 21 days, then monotherapy thereafter - carotid doppler 1. Less than 50% stenosis in the right internal carotid artery 2. Approximately 50-69% stenosis of the left internal carotid artery based on peak systolic velocity criteria. - Zofran 4 mg IV q.4 PRN for nausea #Hyperlipidemia Atorvastatin 80mg po daily (bedtime) #Transaminitis - AST 91, ALT 46 -liver usg Mild right hydronephrosis, Gallbladder is possibly contracted, unable to be visualized and Dilated common bile duct. #GERD Protonix 40mg GI prophylaxis: Protonix 40 mg IV daily DVT prophylaxis: SCD Diet: cardiac diet Goals of care discussed with the patient for more than 35 minutes: Code: Full code Case discussed with Dr. Logan Plan discussed with: Patient, Son, both agreed with current plan. Plan discussed with: Patient My Orders My Orders Orders - CHRISTOPH BARNHART RESIDENT Procedure Category Date Status Time Atorvastatin (Lipitor) PHA 08/14/25 In Process 22:00 Polyethylene Glycol PHA 08/14/25 In Process 17g Powder (Miralax 12:00 * Avionics Electrical Engineer CONS 08/14/25 Transmitted Consult * [employer]ionics Electrical Engineer CONS 08/14/25 Transmitted Consult Electrocardigram EKG 08/14/25 Logged 12:06 Date of Service: Aug 14, 2025 Billing Provider: MONE LOGAN MD Common Visit Codes: [id number] INP/OBS CARE(HIGH) CHRISTOPH BARNHART RESIDENT Aug 14, 2025 15:46 MONE LOGAN MD Aug 14, 2025 23:41
[2025-08-14] MEDS: ATORVASTATIN 20 MG TAB PO SCH (21:26)
[2025-08-15] VITALS (7 sets, daily range): BP systolic 120–150; BP diastolic 61–93; PULSE 51–66; RESP 14–19; TEMP 36.5; O2SAT 96–98
[2025-08-15 07:09] LABS: Hematocrit 38.5 % (36.0-46.0); Hemoglobin 12.8 g/dL (12.2-16.2); Mean Corpuscular Hemoglobin 31.5 pg (28.0-32.0); Mean Corpuscular Volume 94.8 fL (80.0-100.0); Nucleated Red Blood Cells % 0.0 %
[2025-08-15 07:22] LABS: Anion Gap 10 (5-15); Carbon Dioxide 24 mmol/L (20-31); Potassium 4.1 mmol/L (3.5-5.1); Sodium 141 mmol/L (136-145)
[2025-08-15 07:23] LABS: Calcium 8.8 mg/dL (8.7-10.4)
[2025-08-15 07:28] LABS: BUN/Creatinine Ratio 13.2 (10.0-20.0); Blood Urea Nitrogen 9 mg/dL (9-23); Glucose 83 mg/dL (74-106)
[2025-08-15 07:29] LABS: Chloride 107 mmol/L (98-107)
[2025-08-15] MEDS: POLYETHYLENE GLYCOL 17 GM PWDR PO PRN (09:58)
[2025-08-15] MEDS: LACTULOSE 20Gm/30ML SOLN PO ONE (10:45)
[2025-08-15] MEDS ORDERED: ATOR-47 PO ×2 (11:05)
[2025-08-15] MEDS ORDERED: ASPI81CH59 PO ×3 (11:05→15:33)
[2025-08-15] MEDS ORDERED: POLY335015 PO ×2 (11:05)
[2025-08-15] MEDS ORDERED: PANT40TA2 PO ×2 (11:05)
[2025-08-15] MEDS ORDERED: CLOP75TA28 PO ×3 (11:05→15:33)
--- NOTE | 2025-08-15 12:03 | DVHDSRES ---
Discharge Summary Date of Admission Resident Creating Document: [facility] Aug 13, 2025 at 04:20 Date of Discharge: Aug 15, 2025 Admitting Diagnosis Possible acute ischemic stroke Labs/Diagnostic Data: Laboratory Results Test 08/15/25 06:03 08/14/25 07:53 08/13/25 06:22 08/13/25 05:04 White Blood Count 4.8 10^3/uL (4.4-10.8) Red Blood Count 4.06 10^6/uL (4.0-5.20) Hemoglobin 12.8 g/dL (12.2-16.2) Hematocrit 38.5 % (36.0-46.0) Mean Corpuscular Volume 94.8 fL (80.0-100.0) Mean Corpuscular Hemoglobin 31.5 pg (28.0-32.0) Mean Corpuscular Hemoglobin Concent 33.2 g/dL (32.0-36.0) Red Cell Distribution Width 14.0 % (11.8-14.3) Platelet Count 206 10^3/uL (140-450) Mean Platelet Volume 7.9 fL (6.9-10.8) Neutrophils (%) (Auto) 48.7 % (37.0-80.0) Lymphocytes (%) (Auto) 39.7 % (10.0-50.0) Monocytes (%) (Auto) 6.6 % (0.0-12.0) Eosinophils (%) (Auto) 4.5 % (0.0-7.0) Basophils (%) (Auto) 0.5 % (0.0-2.0) Neutrophils # (Auto) 2.3 10 ^3/uL (1.6-8.6) Lymphocytes # (Auto) 1.9 10 ^3/uL (0.4-5.4) Monocytes # (Auto) 0.3 10 ^3/uL (0-1.3) Eosinophils # (Auto) 0.2 10 ^3/uL (0-0.8) Basophils # (Auto) 0 10 ^3/uL (0-0.2) Nucleated Red Blood Cells 0.0 % Sodium Level 141 mmol/L (136-145) Potassium Level 4.1 mmol/L (3.5-5.1) Chloride Level 107 mmol/L (98-107) Carbon Dioxide Level 24 mmol/L (20-31) Anion Gap 10 (5-15) Blood Urea Nitrogen 9 mg/dL (9-23) Creatinine 0.68 mg/dL (0.550-1.02) Glomerular Filtration Rate Calc 102 mL/min (>90) BUN/Creatinine Ratio 13.2 (10.0-20.0) Serum Glucose 83 mg/dL (74-106) Calcium Level 8.8 mg/dL (8.7-10.4) Total Bilirubin 0.9 mg/dL (0.2-1.0) Aspartate Amino Transferase (AST) 33 U/L (13-40) Alanine Aminotransferase (ALT) 50 U/L (7-40) Alkaline Phosphatase 52 U/L (46-116) Total Protein 7.3 g/dL (5.7-8.2) Albumin 4.1 g/dL (3.2-4.8) Urine Color Yellow (Yellow) Urine Clarity Clear (Clear) Urine pH 7.0 (5.0-9.0) Urine Specific [place] > 1.050 (1.001-1.035) Urine Protein Trace (Negative) Urine Ketones Negative (Negative) Urine Blood Trace /uL (Negative) Urine Nitrite Negative (Negative) Urine Bilirubin Negative (Negative) Urine Urobilinogen 4 mg/dL (Negative) Urine Leukocyte Esterase Negative /uL (Negative) Urine RBC 4 /hpf (0 - 4) Urine Microscopic WBC 1 /HPF (0-5) Urine Squamous Epithelial Cells Few /hpf (<5) Urine Bacteria None seen /hpf (None Seen) Urine Glucose Normal mg/dL (Normal) Urine Opiates Screen Pos (NEGATIVE) Urine Fentanyl Screen Neg (NEGATIVE) Urine Barbiturates Screen Neg (NEGATIVE) Urine Phencyclidine Screen Neg (NEGATIVE) Urine Amphetamines Screen Neg (NEGATIVE) Urine Benzodiazepines Screen Neg (NEGATIVE) Urine Cocaine Screen Neg (NEGATIVE) Urine Cannabinoids Screen Neg (NEGATIVE) Prothrombin Time 11.4 sec (9.3-11.8) Prothrombin Time INR 1.08 (0.9-1.15) Activated Partial Thromboplast Time 27.0 SEC (24.5-34.5) Hemoglobin A1c 5.5 % A1C (<5.7) Magnesium Level 2.1 mg/dL (1.6-2.6) Troponin I High Sensitivity 5 ng/L (</=34) Triglycerides Level 85 mg/dL (< 150) Cholesterol Level 185 mg/dL (< 200) LDL Cholesterol 112 mg/dL (< 100) HDL Cholesterol 65 mg/dL (40-59) Test 08/13/25 02:47 08/13/25 02:29 08/13/25 01:45 Thyroid Stimulating Hormone (TSH) 2.20 uIU/mL (0.55-4.78) POC Glucose 107 mg/dl (70-106) B-Type Natriuretic Peptide 11.99 pg/mL (0-100) Other Laboratory Tests 08/15/25 06:03 Brief Hx & Hospital Course: Tiara Braswell is a 55-year old female with past medical history of hypertension, hyperlipidemia, prediabetes, GERD who came to the ED with the chief complaint of chest pain and numbness in the left side of her face since one day before admission. The patient mentioned that she had a sharp, stabbing substernal chest pain, rated as 10/10 in intensity, radiating to the back, associated with nausea and mild shortness of breath the day before admission. About 10 minutes later, she started feeling numbness on the left side of her face along with generalized weakness. The patient's son mentioned that she had been under emotional stress in the last few weeks. CT head was done which showed no acute changes. Neurology was consulted. CT angio Head/Neck showed no acute intracranial abnormality, no large vessel intracranial occlusion and no hemodynamically significant cervical arterial stenosis. Head MRI was negative for CVA. Carotid doppler showed less than 50% stenosis in the right internal carotid artery and approximately 50-69% stenosis of the left internal carotid artery based on peak systolic velocity criteria. ECHO showed EF 65% with mild LVH and LV diastolic dysfunction. The patient mentioned she no longer had the chest pain and only minimal numbness on the left side of her face. PT recommended home health for PT with a front wheel walker. The patient was discharged home in a stable condition. All medications and recommendations were thoroughly explained to the patient and she demonstrated understanding of the same. She was asked to follow up with PCP and in DC clinic. Past medical history: Hypertension, hyperlipidemia, prediabetes, GERD Past surgical history: Cholecystectomy, section, ovarian cystectomy Social & Personal history: Lives at home with family Smoking: Quit smoking 3 years ago, used to smoke 3 cigarettes per day for 40 years Alcohol: Denies Drugs: Denies Allergies: Shellfish, shrimp, oak tree, trees, grass General Appearance: Alert, Oriented X3, Cooperative, Not in acute distress HEENT: Atraumatic, Mucous membranes moist/pink Respiratory: Clear to auscultation, Normal air movement, No added sounds Cardiovascular: Regular rate, Normal S1, Normal S2, No murmurs, tenderness on palpation of central chest region Abdominal: Active bowel sounds, Soft, no distention, no tenderness Extremities: No edema, Normal pulses, No tenderness/swelling Skin: No Significant rash, except past surgical scars Neuro: Normal speech, cranial nerves intact, tone 5/5 in all extremities, strength 5 /5 in upper extremities and 4/5 in lower extremities, all sensations intact Psych/Mental Status: Mental status NL, Mood NL Nurse was there as aquatics specialist during examination Operations or Procedures 1.PROCEDURE(s): CXR1 - CHEST XRAY 1 VIEW REASON: SUSPECTED CVA ORDER NUMBER(s): [id number], ACCESSION NUMBER(s): [id number] CHEST RADIOGRAPH Indication: SUSPECTED CVA Technique: 1 view Comparison: None FINDINGS: Lines and Tubes: External leads. Lungs/Pleura: No focal consolidation, pleural effusion or pneumothorax. Cardiomediastinum: Unremarkable. Other: No acute osseous abnormality. IMPRESSION: No acute cardiopulmonary abnormality. 2.PROCEDURE(s): [place] - ANGIO HEAD/Neck REASON: SUSPECTED CVA ORDER NUMBER(s): [id number], ACCESSION NUMBER(s): [id number] INDICATION: SUSPECTED CVA COMPARISON: None TECHNIQUE: CTA head without and with intravenous contrast. CTA neck with intravenous contrast. 3D image postprocessing was performed on a dedicated workstation and images were used for interpretation and reporting. Radiation Dose Information: CT Dose: CTDI volume is 57.52 mGy. Dose-length product is 1537.33 mGy*cm FINDINGS: CT head: There is no evidence of acute intracranial hemorrhage, extra-axial collection, mass effect, midline shift, herniation or hydrocephalus. The ventricles, sulci and cisterns are age appropriate. The duncan-white differentiation is intact. The visualized paranasal sinuses and mastoid air cells are clear. The surrounding soft tissues and osseous structures are unremarkable. CTA head: No large vessel occlusion or hemodynamically significant stenosis. No evidence of aneurysm or vascular malformation. The dural veins appear patent. CTA neck: The visualized thoracic aortic arch and proximal great vessels are unremarkable. The left common, internal and external carotid arteries are patent with non flow limiting atherosclerosis of the bulb. The right common, internal and external carotid arteries are patent with non flow-limiting atherosclerosis of the bulb. The cervical segments of the right and left vertebral arteries are within normal limits. The limited visualized lung apices are clear. The surrounding soft tissues and osseous structures are otherwise unremarkable. IMPRESSION: 1. No acute intracranial abnormality. 2. No large vessel intracranial occlusion. 3. No hemodynamically significant cervical arterial stenosis. 3.PROCEDURE(s): [facility] - BRAIN HEAD WO CONTRAST REASON: stroke ORDER NUMBER(s): [id number], ACCESSION NUMBER(s): [id number] EXAMINATION: MRI BRAIN HEAD WO CONTRAST INDICATION: stroke COMPARISON: CT ANGIO HEAD/NECK on DOS: 08/13/25 TECHNIQUE: Multiplanar, multisequence magnetic resonance imaging of the brain was performed without the use of intravenous contrast. FINDINGS: No evidence of acute infarct. No intracranial hemorrhage. No mass effect. There is periventricular/deep white matter T2/FLAIR hyperintensity is nonspecific, but most commonly associated with chronic microvascular disease. The ventricles and sulci are normal in size for age. Clear basal cisterns. Flow voids in the major intracranial vessels are maintained. No abnormality of the orbits. The mastoid air cells are clear. There is mild mucosal thickening in the left maxillary sinus. No abnormality of the visualized osseous structures and extracranial soft tissues. IMPRESSION: No acute infarct, intracranial hemorrhage, mass effect, or hydrocephalus. 4. PROCEDURE(s): CARCL - CAROTID DUPLX W COLOR DOP REASON: dizziness ORDER NUMBER(s): [id number], ACCESSION NUMBER(s): [id number] Carotid Duplex Date: 08/13/2025 07:25 AM Clinical History: dizziness Comparison: CT ANGIO HEAD/NECK on DOS: 08/13/25 Technique: Duplex Doppler evaluation of the extracranial carotid and vertebral arteries including color Doppler and spectral/pulsed waveform analysis was performed. Findings: RIGHT SIDE: Moderate atherosclerotic plaque seen in the right carotid bulb. The peak systolic velocities are 81.5 cm/s in the distal CCA and 114.8 cm/s in the proximal ICA.The ICA/CCA ratio is 1.4. The external carotid artery is patent with peak systolic velocity of 67.2 cm/s proximally. There is appropriate antegrade flow in the right vertebral artery. LEFT SIDE: Mild atherosclerotic plaque seen in the carotid bulb. The peak systolic velocities are 73.4 cm/s in the distal CCA and 158.1 cm/s in the proximal ICA. The ICA/CCA ratio is 2.2. The external carotid artery is patent with peak systolic velocity of 83.5 cm/s proximally. There is appropriate antegrade flow in the left vertebral artery. IMPRESSION: 1. Less than 50% stenosis in the right internal carotid artery. 2. Approximately 50-69% stenosis of the left internal carotid artery based on peak systolic velocity criteria. 5.PROCEDURE(s): LIVUS - LIVER REASON: transaminitis ORDER NUMBER(s): [id number], ACCESSION NUMBER(s): [id number] INDICATION: transaminitis TECHNIQUE: Multiple real-time sonographic images of the abdomen were obtained. COMPARISON: None FINDINGS: The liver is heterogeneous in echogenicity. The liver measures 15cm. No intrahepatic biliary ductal dilatation is noted. Gallbladder wall not visualized. The common duct measures 1 cm and is unremarkable. No pericholecystic fluid is noted. The right kidney measures 10cm. Mild right hydronephrosis. Gallbladder is possibly contracted, unable to be visualized. The pancreas is not well visualized due to obscuration from bowel gas. The visualized portions of the IVC and aorta are grossly unremarkable. IMPRESSION: Mild right hydronephrosis. Gallbladder is possibly contracted, unable to be visualized. Dilated common bile duct. 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 Blood Pressure: 107/69 mmHg INDICATION Chest Pain RISK FACTORS Height: 5' 5", Weight: 158 DIMENSIONS LVDd 3.7 (3.8-5.7cm) LA (2D) 4.0 (1.9-4.0cm) Aortic Root 3.2 (2.0- 3.7cm) LVDs 2.5 (2.5-4.0cm) LA (MM) (1.9-4.0cm) Aortic Cusp Exc 1.7 (1.5- 2.0cm) EF (%) 62.0 (55-70%) Rt. Atrium (1.9-4.0cm) Asc. Aorta cm IVSd 1.1 (0.7-1.1cm) RV (D) (1.8-2.4cm) PWd 1.0 (0.7-1.1cm) Mitral Valve Mitral Mitral Stenosis E wave 0.80m/s MV Mean GR. mmHg A wave 0.80m/s MV Peak GR. mmHg E/A ratio 1.0 2D MVA cm2 Aortic Valve Aortic Valve Aortic Stenosis V1 1.30m/s AO Mean GR. 6mmHg V2 1.80m/s AO Peak GR. 13mmHg LVOT Diameter 2.1 (1.8-2.4cm) Doppler MIC 2.50cm2 Other Information Quality : Technically Limited Rhythm : Technically limited study due to body habitus. Conclusion MILD LVH AND MILD LV DIASTOLIC DYSFUNCTION LV EF IS 65% NORMAL VALVES NO EFFUSION Condition at Discharge: Fair Final Diagnosis/Problems List Acute chest pain, most likely musculoskeletal ACS, ruled out Possible TIA Ruled out Ischemic Stroke (Acute) Hyperlipidemia GERD Discharge Disposition: Home with Health Services Discharge Instruct/Medications Diet: Cardiac 2g Na,low cholest Activity: No Restrictions, As Tolerated Follow Up/Referral: Follow up in dc clinic in 1 week follow up with PCP in 1-2 weeks Medications: Aspirin 81 mg p.o. daily Atorvastatin 80 mg p.o. HS Plavix 75 mg p.o. daily for 21 days MiraLax 17 g p.o. daily Protonix 40 mg p.o. daily Scheduled Aspirin (Aspirin Low Dose), 1 TAB PO DAILY Aspirin (Aspirin Low Dose), 1 TAB PO DAILY Atorvastatin Calcium (Atorvastatin Calcium), 1 TAB PO HS Clopidogrel Bisulfate (Plavix), 1 TAB PO DAILY Clopidogrel Bisulfate (Plavix), 1 TAB PO DAILY Pantoprazole Sodium Sesquihydr (Protonix), 40 MG PO DAILY Polyethylene Glycol 3350 (Miralax), 17 GM PO DAILY Miscellaneous Medications Cyanocobalamin (Vitamin B 12), 100 MCG PO, (Reported) Discontinued Medications Atorvastatin Calcium (Lipitor), 10 TAB PO QPM, (Reported) Cholecalciferol (Sm Vitamin D3), 5,000 CAP PO DAILY, (Reported) Cyanocobalamin (B-12), 100 MCG PO, (Reported) Estradiol (Estradiol), 0.5 MG TD, (Reported) Hydrocodone-Acetaminophen (Hydrocodone Bitartrate/AC 10-325 mg), 1 TAB PO, (Reported) Lisinopril (Lisinopril), 20 TAB PO DAILY, (Reported) Medroxyprogesterone Acetate (Provera), 1 TAB PO DAILY, (Reported) Pantoprazole Sodium Sesquihydr (Protonix), 40 MG PO DAILY, (Reported) Discharge Statement: "Patient was advised to return to the ER or call 911 if any headaches, dizziness, shortness of breath, chest pain, abdominal pain, bleeding, fevers, or worsening of medical condition. Patient was counseled about treatment plan, medications, possible side effects, patientverbalized understanding. All questions were answered to the best of my ability. This discharge took greater then 30 minutes in planning, reviewing documentation, counseling the patient, and discussing with other team members." ASSESSMENT ASSESSMENT Assessment Acute chest pain, most likely musculoskeletal ACS, ruled out Possible TIA Ruled out Ischemic Stroke (Acute) Hyperlipidemia GERD Date of Service: Aug 15, 2025 Billing Provider: MONE RICHARD MD Common Visit Codes: 64429-MHX/OBS DISCH DAY >30min [facility] Aug 15, 2025 12:03 MONE RICHARD MD Aug 16, 2025 13:20
--- NOTE | 2025-08-18 08:40 | ECG ---
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
== END 2025-08-15 17:16 | disposition home health service (06) | DRG 46 ==
LOC: EDBD 01:29 → ER 01:29 → OVERFLOW 04:20 → TELE-WESTW 09:36
PROVIDERS: ADMIT Internal Medicine; ATTEND Internal Medicine
DX: I65.22 Occlusion and stenosis of left carotid artery (principal); E78.5 Hyperlipidemia, unspecified; I10 Essential (primary) hypertension; K21.9 Gastro-esophageal reflux disease without esophagitis; R74.01 Elevation of levels of liver transaminase levels; Z79.899 Other long term (current) drug therapy; M94.0 Chondrocostal junction syndrome [Tietze]
CPT/HCPCS: 36415; 70496; 70498; 70551; 71045; 76705; 80048; 80053; 80061; 80307; 81001; 82962; 83036; 83735; 83880; 84443; 84484; 85025; 85610; 85730; 93005; 93306; 93886; 96374; 96375; 97110; 97116; 97163; 97530; G0378; J1885; J2405; J2470

== ENCOUNTER 2025-08-18 09:39 | Emergency (ER) | payer MEDICAID ==
[~2025-08-18] VITALS: Ht 160 cm; Wt 68.0 kg
[~2025-08-18 09:39] MED LIST: ASPI81CH59 PO; ATOR-47 PO; ATOR10TA PO; CHOL200039 PO; CLOP75TA28 PO; CYAN100L PO; HYDR-4798 PO; LISI20TA56 PO; MEDR5TAB28 PO; PANT40TA2 PO; POLY335015 PO; [UNRECOGNIZED DRUG - CODE] PO; [UNRECOGNIZED DRUG - CODE] TD
--- NOTE | 2025-08-18 10:05 | ECG ---
[facility] Test Date: 2025-08-18 Test Time: 09:44:13 Pat Name: TIARA SILVA Department: [facility] ED Patient ID: [id number] Room: Gender: F Preparer Making Department: ER : 1970 Requested By: YULI GORMAN Order Number: [id number] Reading MD: Alexandre Farrar Measurements Intervals [place] Rate: 55 P: 64 PA: 178 QRS: -33 QRSD: 100 T: 79 QT: 452 QTc: 433 Interpretive Statements Sinus rhythm Left axis deviation Electronically Signed On 08-23-2025 10:08:23 PST by Alexandre Farrar Please click the below link to view image of tracing.
--- NOTE | 2025-08-18 10:32 | DVH ---
XY CHEST TWO VIEWS ROUTINE, HISTORY: WEAK COMPARISON: XY CHEST XRAY 1 VIEW on DOS: 08/13/25 XY CHEST XRAY 1 VIEW on DOS: 08/13/25 TECHNICAL DATA: 2 view of the chest was obtained. FINDINGS: Lines and tubes: None Cardiomediastinal silhouette: normal Pulmonary vasculature: normal Lung expansion: normal Lung airspace: normal Lung interstitium: normal Pleura: normal Pneumothorax: no Bones: Unremarkable Other: no IMPRESSION: No acute intrathoracic abnormality.
--- NOTE | 2025-08-18 10:33 | DVH ---
INDICATION: WEAK TECHNIQUE: Multidetector row CT of the head was performed without administration of intravenous contrast. Dose lowering techniques have been used including automated exposure control and adjustment of mA and/or kv according to patient size. COMPARISON: CT head 08/13/2025. MRI brain 08/13/2025. FINDINGS: There is no evidence of acute intracranial hemorrhage or infarct. There is no mass effect or shifting of midline structures. Periventricular white matter hypodensity likely reflect small vessel ischemic changes. Basal cisterns, sulci, and ventricles are symmetric and within normal limits. No depressed calvarial fracture. DLP is 966.24 mGy-cm. CTDI vol is 53.49 mGy. IMPRESSION: 1. No acute intracranial abnormality.
[2025-08-18 10:36] VITALS: PULSE 55; RESP 17; TEMP 98.5; O2SAT 95
[2025-08-18 10:54] LABS: Hematocrit 39.8 % (36.0-46.0); Hemoglobin 13.7 g/dL (12.2-16.2); Mean Corpuscular Hemoglobin 32.7 pg (28.0-32.0); Mean Corpuscular Volume 95.0 fL (80.0-100.0); Nucleated Red Blood Cells % 0.0 %
--- NOTE | 2025-08-18 11:03 | ED.PDOC ---
HPI (NEURO) HPI Comments This is a 55 year old female [place]AA presenting to the ED with chief complaint of headache. Patient reports that she has been experiencing a bilateral headache with associated dizziness and left arm pain since last night, worsening over time. Patient relays that she had been diagnosed with a CVA last week. Patient denies any N/V, numbness, weakness, tingling, chest pain, or SOB. Chief Complaint: General Weakness Time Seen by MD: 10:59 Reviewed Notes: Nurses Notes, Music Supervisor Notes, Medications, Allergies Information Source: Patient, Emergency Med Personnel Mode of Arrival: EMS Severity: Moderate Dizziness/Weakness Severity: Unable to do activities Headache Severity: Moderate Timing: Hours Duration: Since onset Headache Quality: Sharp Headache Location: Temporal Onset: At rest Circumstances: Spontaneous History of: CVA Associated Signs and Symptoms: Headache Past Medical History PAST MEDICAL HISTORY: CVA, High Lipids, HTN Past Medical History (Other): Gastric ulcer Surgical History: Denies all surgeries PHARMACY ASSOCIATE History: Denies all PHARMACY ASSOCIATE Hx Family History Family History: Reviewed,noncontributory to illness Social History Smoker: Non-Smoker Alcohol: Denies ETOH Use Drugs: Denies Drug Use Lives In: Home Constitutional: denies: chills, diaphoresis, fatigue, fever, malaise, sweats, weakness, others EENTM: denies: blurred vision, double vision, ear bleeding, ear discharge, ear drainage, ear pain, ear ringing, eye pain, eye redness, hearing loss, mouth pain, mouth swelling, nasal discharge, nose bleeding, nose congestion, nose pain, photophobia, tearing, throat pain, throat swelling, voice changes, others Respiratory: denies: cough, hemoptysis, orthopnea, SOB at rest, shortness of breath, SOB with excertion, stridor, wheezing, others Cardiovascular: reports: left arm pain; denies: chest pain, dizzy spells, diaphoresis, Dyspnea on exertion, edema, irregular heart beat, lightheadedness, palpitations, PND, syncope, others Gastrointestinal: denies: abdomen distended, abdominal pain, blood streaked bowels, constipated, diarrhea, dysphagia, difficulty swallowing, hematemesis, melena, nausea, poor appetite, poor fluid intake, rectal bleeding, rectal pain, vomiting, others Genitourinary: denies: abnormal vagina bleeding, burning, dyspareunia, dysuria, flank pain, frequency, hematuria, incontinence, pain, , vagina discharge, urgency, others Neurological: reports: dizziness, headache; denies: fainting, left sided numbness, left sided weakness, numbness, paresthesia, pre-existing deficit, right sided numbness, right sided weakness, seizure, speech problems, tingling, tremors, weakness, others Musculoskeletal: denies: back pain, gout, joint pain, joint swelling, muscle p ain, muscle stiffness, neck pain, others Integumetry: denies: bruises, change in color, change in hair/nails, dryness, laceration, lesions, lumps, rash, wounds, others Allergic/Immunocompromised: denies: Difficulty Healing, Frequent Infections, Hives, Itching, others Hematologic/Lymphatic: denies: anemia, blood clots, easy bleeding, easy bruising, swollen glands, others Endocrine: denies: excessive hunger, excessive sweating, excessive thirst, excessive urination, flushing, intolerance to cold, intolerance to heat, unexplained weight gain, unexplained weight loss, others Psychiatric: denies: anxiety, bipolar disorder, depression, hopeless, panic disorder, schizophrenia, sleepless, suicidal, others All Other Systems: Reviewed and Negative Physical Exam General Appearance: No Apparent Distress, Normal HEENT: Normal ENT Inspection, Pharynx Normal, TMs Normal Neck: Full Range of Motion, Non-Tender, Normal, Normal Inspection Respiratory: Chest Non-Tender, Lungs Clear, No Accessory Muscle Use, No Respiratory Distress, Normal Breath Sounds Cardiovascular: No Edema, No JVD, No Murmur, No Gallop, Normal Peripheral Pulses, Regular Rate/Rhythm Breast Exam: Deferred Gastrointestinal: No Organomegaly, Non Tender, No Pulsatile Mass, Normal Bowel Sounds, Soft Genitalia: Deferred Pelvic: Deferred Rectal: Deferred Extremities: No calf tenderness, Normal capillary refill, Normal inspection, Normal range of motion, Non-tender, No pedal edema Musculoskeletal : Apperance: Normal Neurologic: Alert, radiator core tester II-XII nml as Tested, No Motor Deficits, Normal Affect, Normal Mood, No Sensory Deficits Cerebellar Function: Normal Reflexes: Normal Skin: Dry, Normal Color, Warm Lymphatic: No Adenopathy Was a procedure done? Was a procedure done?: No Differential Diagnosis (SZ) Seizure: CVA/TIA, Hypocalcemia, Hypoglycemia, Hyponatremia CVA: CVA, TIA General Weakness: Anemia, CVA, Dehydration Headache: Cluster, Migraine, CVA X-Ray, Labs, Meds, VS Vital Signs Date Time Temp Pulse Resp B/P (MAP) Pulse Ox O2 Delivery O2 Flow Rate FiO2 08/18/25 12:00 52 14 139/73 (95) 97 08/18/25 10:36 98.5 55 17 150/75 (100) 95 98.5 08/18/25 10:36 55 17 95 Room Air* 0 21 08/18/25 09:50 99.6 68 18 123/54 99 99.6 08/18/25 09:44 55 Lab Test 08/18/25 11:41 08/18/25 11:05 08/18/25 10:18 Range/Units Urine Color Colorless Yellow Urine Clarity Clear Clear Urine pH 7.0 5.0-9.0 Urine Specific [place] 1.006 1.001-1.035 Urine Protein Negative Negative Urine Ketones Negative Negative Urine Blood Negative Negative /uL Urine Nitrite Negative Negative Urine Bilirubin Negative Negative Urine Urobilinogen Normal Negative mg/dL Urine Leukocyte Esterase Negative Negative /uL Urine RBC None seen 0 - 4 /hpf Urine Microscopic WBC < 1 0-5 /HPF Urine Squamous Epithelial Cells Few <5 /hpf Urine Bacteria Few H None Seen /hpf Urine Glucose Normal Normal mg/dL Troponin I High Sensitivity 3 L 3 L </=34 ng/L White Blood Count 4.8 4.4-10.8 10^3/uL Red Blood Count 4.18 4.0-5.20 10^6/uL Hemoglobin 13.7 12.2-16.2 g/dL Hematocrit 39.8 36.0-46.0 % Mean Corpuscular Volume 95.0 80.0-100.0 fL Mean Corpuscular Hemoglobin 32.7 H 28.0-32.0 pg Mean Corpuscular Hemoglobin Concent 34.4 32.0-36.0 g/dL Red Cell Distribution Width 14.8 H 11.8-14.3 % Platelet Count 214 140-450 10^3/uL Mean Platelet Volume 8.1 6.9-10.8 fL Neutrophils (%) (Auto) 57.8 37.0-80.0 % Lymphocytes (%) (Auto) 32.6 10.0-50.0 % Monocytes (%) (Auto) 6.7 0.0-12.0 % Eosinophils (%) (Auto) 2.2 0.0-7.0 % Basophils (%) (Auto) 0.7 0.0-2.0 % Neutrophils # (Auto) 2.8 1.6-8.6 10 ^3/uL Lymphocytes # (Auto) 1.6 0.4-5.4 10 ^3/uL Monocytes # (Auto) 0.3 0-1.3 10 ^3/uL Eosinophils # (Auto) 0.1 0-0.8 10 ^3/uL Basophils # (Auto) 0 0-0.2 10 ^3/uL Nucleated Red Blood Cells 0.0 % Sodium Level 143 136-145 mmol/L Potassium Level 4.0 3.5-5.1 mmol/L Chloride Level 108 H 98-107 mmol/L Carbon Dioxide Level 25 20-31 mmol/L Anion Gap 10 5-15 Blood Urea Nitrogen 11 9-23 mg/dL Creatinine 0.72 0.550-1.02 mg/dL Glomerular Filtration Rate Calc 98 >90 mL/min BUN/Creatinine Ratio 15.3 10.0-20.0 Serum Glucose 90 74-106 mg/dL Calcium Level 9.1 8.7-10.4 mg/dL Total Bilirubin 0.6 0.2-1.0 mg/dL Aspartate Amino Transferase (AST) 21 13-40 U/L Alanine Aminotransferase (ALT) 30 7-40 U/L Alkaline Phosphatase 50 46-116 U/L Total Protein 7.5 5.7-8.2 g/dL Albumin 4.4 3.2-4.8 g/dL [place] [id number] Ph: [phone] DIAGNOSTIC IMAGING Diagnostic Imaging Report : [id number] Signed PATIENT: TIARA SILVA ACCT: [id number] UNIT: [id number] : 1970 LOC: ER ROOM / BED: / AGE / SEX: 55 / F ADM STATUS: REG ER SERVICE [id number] ORDERING PHYSICIAN: YULI GORMAN MD PROCEDURE(s): CXR2 - CHEST TWO VIEWS ROUTINE REASON: WEAK ORDER NUMBER(s): [id number], ACCESSION NUMBER(s): [id number] CHEST TWO VIEWS ROUTINE, HISTORY: WEAK COMPARISON: XY CHEST XRAY 1 VIEW on DOS: 08/13/25 XY CHEST XRAY 1 VIEW on DOS: 08/13/25 TECHNICAL DATA: 2 view of the chest was obtained. FINDINGS: Lines and tubes: None Cardiomediastinal silhouette: normal Pulmonary vasculature: normal Lung expansion: normal Lung airspace: normal Lung interstitium: normal Pleura: normal Pneumothorax: no Bones: Unremarkable Other: no IMPRESSION: No acute intrathoracic abnormality. ATED BY: JEREMY BATES MD DICTATED DATE/TIME: 08/18/25 103 SIGNED BY: JEREMY BATES MD SIGNED DATE/TIME: 08/18/25 103 CC: Images Reviewed?: Images reviewed and evaluated by me Time of 1ST Reevaluation: 11:59 Reevaluation 1ST: Unchanged Patient Education/Counseling: Diagnosis, Treatment Family Education/Counseling: No Family Present Departure 1 Departure Time of Disposition: 12:41 (Patient with a history of recent CVA with intractable migraine and worsening weakness. We will admit patient for further workup and expert consultation) Impression: Primary Impression: Migraine Additional Impressions: Arm paresthesia, left History of CVA (cerebrovascular accident) Disposition: ADMITTED INPATIENT Admit to: [facility] Condition: Guarded Critical Care Note Critical Care Time?: No Stability Stability form required: No Heart Score Heart Score: Heart Score Response (Comments) Value History N/A 0 EKG N/A 0 Age N/A 0 Risk Factors N/A 0 Troponin N/A 0 Total 0 I personally scribed for YULI GORMAN MD ([email or web address]) on 08/18/25 at 11:03. Electronically submitted by Malik Chung ([email or web address]). I personally scribed for YULI GORMAN MD ([email or web address]) on 08/18/25 at 11:03. Electronically submitted by Malik Chung ([email or web address]). YULI GORMAN MD Aug 18, 2025 11:03
[2025-08-18 11:05] LABS: Alanine Aminotransferase 30 U/L (7-40); Albumin 4.4 g/dL (3.2-4.8); Alkaline Phosphatase 50 U/L (46-116); Anion Gap 10 (5-15); BUN/Creatinine Ratio 15.3 (10.0-20.0); Blood Urea Nitrogen 11 mg/dL (9-23); Calcium 9.1 mg/dL (8.7-10.4); Carbon Dioxide 25 mmol/L (20-31); Glucose 90 mg/dL (74-106); Potassium 4.0 mmol/L (3.5-5.1); Sodium 143 mmol/L (136-145); Total Protein 7.5 g/dL (5.7-8.2)
[2025-08-18 11:06] LABS: Bilirubin, Total 0.6 mg/dL (0.2-1.0)
[2025-08-18 11:08] LABS: Chloride 108 mmol/L (98-107)
[2025-08-18 11:58] LABS: Urine Protein, UAD Negative (Negative)
[2025-08-18 14:00] VITALS: BP 156/65; PULSE 53; RESP 11; O2SAT 95
[2025-08-18] MEDS: ACETAMINOPHEN 325 MG TAB PO ONE (14:29)
== END 2025-08-18 14:30 | disposition left against medical advice (07) ==
LOC: ER 09:39 → EDBD 09:39 → ER 14:30
DX: G43.909 Migraine, unspecified, not intractable, without status migrainosus (principal); R20.2 Paresthesia of skin; I10 Essential (primary) hypertension; Z86.73 Personal history of transient ischemic attack (TIA), and cerebral infarction without residual deficits; Z79.899 Other long term (current) drug therapy
CPT/HCPCS: 36415; 70450; 71046; 80053; 81001; 84484; 85025